=== PATIENT | female | born 1985 | race Caucasian/White ===

== ENCOUNTER 2024-02-11 11:56 | Emergency (ER) | payer SELFPAY ==
[~2024-02-11 11:56] MED LIST: Iopamidol 300 61% 100 ML VIAL FS ONE
[2024-02-11 12:48] LABS: #Basophils 0.03 10x3/uL (0.0-0.2); #Eosinphils 0.07 10x3/uL (0.0-0.5); %Basophils 0.4 % (0.0-2.0); %Lymphocytes 16.5 % (18.0-47.0); %Monocytes 6.9 % (0.0-10.0); %Neutrophils 74.8 % (40.0-75.0); Hematocrit 40.5 % (34.9-44.5); Hemoglobin 14.4 g/dL (12.0-15.5); Mean Corpuscular HGB CONC 35.6 g/dL (32.0-36.0); Mean Corpuscular Hemoglobin 32.6 pg (27.0-33.0); Mean Corpuscular Volume 91.6 fL (81.6-98.3); Mean Platelet Volume 10.5 fL (7.4-10.4); Platelet Count 162 10x3/uL (150-450); RBC Distribution Width 12.2 % (11.5-14.5); Red Blood Cell (RBC) Count 4.42 10x6/uL (3.90-5.03); White Blood Cell (WBC) Count 7.2 10x3/uL (3.5-10.5)
[2024-02-11 13:01] LABS: BHCG - Serum Negative (NEGATIVE); Pregs Control Bar Appear? YES (CONTROL BAR)
[2024-02-11 13:02] LABS: Pregs Control Background? CLEAR/WHITE (CLR/WHITE)
[2024-02-11 13:06] LABS: ALT (SGPT) 11 U/L (8-55); AST (SGOT) 15 U/L (5-34); Albumin 3.7 g/dL (3.5-5.0); Alkaline Phosphatase 75 U/L (40-110); Anion Gap 11 mmol/L (10-20); BUN (Urea Nitrogen) 8 mg/dL (7.0-18.7); Bilirubin, Total 0.5 mg/dL (0.2-1.2); Calc. Creatinine Clearance 0 mL/min (70-130); Carbon Dioxide 24 mmol/L (22-29); Chloride 107 mmol/L (98-107); Estimated GFR 101; Globulin 2.8 g/dL (2.4-3.5); Glucose 92 mg/dL (70-105); Lipase 13 U/L (8-78); Protein, Total 6.5 g/dL (6.0-8.3); Sodium 138 mmol/L (136-145)
== END 2024-02-11 14:10 | disposition home or self-care (01) ==
LOC: CSHERS 11:56
DX: R10.9 Unspecified abdominal pain (principal)
CPT/HCPCS: 70450; 71260; 72125; 74177; 80053; 83690; 84703; 85025

== ENCOUNTER 2024-09-09 16:29 | Emergency (ER) | payer BC | END 2024-09-09 17:28 | disposition home or self-care (01) | LOC: CSHERS 16:29 | DX: K08.89 Other specified disorders of teeth and supporting structures (principal) | CPT/HCPCS: 99282 ==